=== PATIENT | male | born 1990 | race Hispanic/Latino ===

== ENCOUNTER 2017-10-22 15:35 | Outpatient (CLI) | payer OTHER ==
--- NOTE | 2017-10-22 16:14 | RAD ---
RIGHT FOOT THREE VIEWS: 10/22/17 HISTORY: 26-year-old male with history of left foot pain. FINDINGS/IMPRESSION: No fracture, dislocation, or other significant abnormality. POS: [facility]
== END 2017-10-22 15:36 | disposition home or self-care (01) ==
LOC: MADRAD 15:35
PROVIDERS: ATTEND Family Medicine
DX: M79.672 Pain in left foot (principal)

== ENCOUNTER 2018-07-14 19:22 | Emergency (ER) | payer OTHER ==
[2018-07-14] MEDS ORDERED: Silver Sulfadiazine 1% Cream 50 GM TUBE ONE (19:46)
[2018-07-14] MEDS ORDERED: traMADol HCl 50 MG TAB ONE (20:07)
== END 2018-07-14 20:10 ==
LOC: MADERS 19:22
DX: T21.22XA Burn of second degree of abdominal wall, initial encounter (principal); T22.111A Burn of first degree of right forearm, initial encounter; Z79.899 Other long term (current) drug therapy; X11.8XXA Contact with other hot tap-water, initial encounter
CPT/HCPCS: 16020